=== PATIENT | female | born 1965 ===

== ENCOUNTER 2023-03-03 09:42 | Day surgery (SDC) | payer BC ==
[~2023-03-03] VITALS: Ht 167.6 cm; Wt 54.9 kg
[~2023-03-03 09:42] MED LIST: LR 1,000 ML IV SCH; Ondansetron 4 MG/2 ML VIAL IV PRN
[2023-03-03] MEDS ORDERED: Lidocaine PF 2% (20 MG/ML) 5 ML VIAL ONE (10:50)
[2023-03-03] MEDS ORDERED: fentaNYL 50 MCG/ML 2 ML VIAL ONE (10:50)
[2023-03-03 11:57] VITALS: BP 126/87; PULSE 89; TEMP 98.4
[2023-03-03 12:03] VITALS: BP 100/69; PULSE 64; TEMP 98.1
[2023-03-03 12:15] VITALS: BP 107/70; PULSE 68
[2023-03-03 12:30] VITALS: BP 123/71; PULSE 76
[2023-03-03 12:45] VITALS: BP 113/64; PULSE 76
--- NOTE | 2023-03-03 13:15 | NUR ---
1203 RETURNS TO ROOM 6 PER CART. AWAKE, ALERT. RESP UNLABORED. AMBULATES TO RECLINER WITH STAND BY ASSIST. DENIES NAUSEA OR ABD PAIN. CALL LIGHT AT SIDE 1210 DR. OBREGON HERE TO VISIT WITH PATIENT 1225 TOLERATES PO JUICE AND MUFFIN WITHOUT NAUSEA 1250 DISCHARGE INSTRUCTIONS REVIEWED. PATIENT VERBALIZES UNDERSTANDING. COPY PROVIDED IN DISCHARGE FOLDER 1300 DRESSES SELF. AWAITING 'S ARRIVAL
== END 2023-03-03 13:15 | disposition home or self-care (01) ==
LOC: SDCO 09:42 → EDSEX 11:15 → SDCO 11:15
DX: Z12.11 Encounter for screening for malignant neoplasm of colon (principal); D12.5 Benign neoplasm of sigmoid colon; K63.5 Polyp of colon
CPT/HCPCS: J2704; J3010; J7120